=== PATIENT | male | born 1995 | race Hispanic/Latino ===

== ENCOUNTER 2018-06-02 19:26 | Emergency (ER) | payer OTHER ==
[2018-06-02 20:22] LABS: Basophils # (Auto) 0.1 K/mm3 (0.0-0.1); Basophils % (Auto) 1.4 % (0.0-1.8); Eosinophils # (Auto) 0.1 K/mm3 (0.0-0.4); Eosinophils % (Auto) 2.1 % (0.0-4.3); Hematocrit 30.8 % (35.5-45.6); Hemoglobin 10.4 gm/dl (11.8-15.2); Lymphocytes # (Auto) 1.5 K/mm3 (1.2-5.4); Lymphocytes % (Auto) 25.2 % (13.4-35.0); Mean Corpuscular HGB Conc 34 % (32-34); Mean Corpuscular Volume 89 fl (84-94); Monocytes # (Auto) 0.6 K/mm3 (0.0-0.8); Monocytes % (Auto) 10.1 % (0.0-7.3); Platelet Count 355 K/mm3 (140-440); Red Blood Count 3.45 M/mm3 (3.65-5.03); Red Cell Distribution Width 15.9 % (13.2-15.2)
--- NOTE | 2018-06-02 20:24 | Emergency Department Report ---
HPI - General Chief Complaint: Abdominal Pain Time Seen by Provider: 06/02/18 20:06 - HPI HPI: Room 20 The patient is a 23-year-old male with history of Marfan syndrome with a chief complaint of shortness of breath and abdominal pain. The patient states he is status post AAA repair approximately [address] Laguerre. The patient states early this morning he developed intermittent shortness of breath. Patient denies history of cough or fever. The patient states this evening at approximately 19:00 of sharp periumbilical and left-sided abdominal pain. The patient states he subsequently called EMS to be transported to the ED for further evaluation. The patient denies nausea or vomiting. The patient states that shortness of breath has resolved and his abdominal pain is intermittent. Patient currently denies abdominal pain. The patient states he has not contacted his surgeon yet about the symptoms. Location: [See above] Duration: [See above] Quality: Sharp Severity: Currently 0/10 Modifying factors: [see above] Context: [see above] Mode of transportation: [not driving] ED Past Medical Hx - Past Medical History Hx Hypertension: Yes Additional medical history: AAA, marfan syndrome - Surgical History Additional Surgical History: AAA repair - Family History Family history: no significant - Social History Smoking Status: Former Smoker (none 2-3 years) Substance Use Type: None - Medications Home Medications: Home Medications Medication Instructions Recorded Confirmed Last Taken Type HYDROcodone/APAP 5-325 [[place] 1 - 2 each PO Q6HR PRN #14 tablet 06/02/18 Unknown Rx 5/325] ED Review of Systems ROS: Stated complaint: ABDOMINAL PAIN/POST AAA Other details as noted in HPI Constitutional: denies: fever Eyes: denies: eye pain ENT: denies: throat pain Respiratory: shortness of breath. denies: cough Cardiovascular: denies: chest pain Endocrine: no symptoms reported Gastrointestinal: abdominal pain. denies: nausea, vomiting Genitourinary: denies: dysuria Musculoskeletal: denies: back pain Neurological: denies: headache Physical Exam - Physical Exam Vital Signs: Vital Signs 06/02/18 19:35 Temperature 98.1 F Pulse Rate 78 Respiratory 20 Rate Blood Pressure 161/108 O2 Sat by Pulse 98 Oximetry Physical Exam: GENERAL: The patient is well-developed well-nourished male lying on stretcher not appearing to be in acute distress. [] HEENT: Normocephalic. Atraumatic. Extraocular motions are intact. Patient has moist mucous membranes. NECK: Supple. Trachea midline CHEST/LUNGS: Clear to auscultation. There is no respiratory distress noted. HEART/CARDIOVASCULAR: Regular. There is no tachycardia. There is no gallop rub or murmur. ABDOMEN: Abdomen is soft, with tenderness to palpation in the left lower quadrant. Patient has normal bowel sounds. There is no abdominal distention. No abdominal bruits auscultated SKIN: There is no rash. There is no edema. There is no diaphoresis. NEURO: The patient is awake, alert, and oriented. The patient is cooperative. The patient has normal speech MUSCULOSKELETAL: There is no evidence of acute injury. ED Course Vital Signs 06/02/18 19:35 Temperature 98.1 F Pulse Rate 78 Respiratory 20 Rate Blood Pressure 161/108 O2 Sat by Pulse 98 Oximetry - Consultations Consultation #1: 06/02/18 22:16 Case discussed with the patient's vascular surgery PA Nitza Davis- sounds like normal post surgical findings. No need for immediate intervention. Have patient follow-up in office this week. ED Medical Decision Making - Lab Data Result diagrams: 06/02/18 20:06 06/02/18 20:06 Laboratory Tests 06/02/18 06/02/18 20:06 20:06 WBC 5.9 RBC 3.45 L Hgb 10.4 L Hct 30.8 L MCV 89 MCH 30 MCHC 34 RDW 15.9 H Plt Count 355 Lymph % (Auto) 25.2 [place] % (Auto) 10.1 H Eos % (Auto) 2.1 Baso % (Auto) 1.4 Lymph # 1.5 [place] # 0.6 Eos # 0.1 Baso # 0.1 Seg Neutrophils % 61.2 Seg Neutrophils # 3.6 Sodium 139 Potassium 4.0 Chloride 101.8 Carbon Dioxide 26 Anion Gap 15 BUN 9 Creatinine 0.5 L Estimated GFR > 60 BUN/Creatinine Ratio 18 Glucose 103 H Calcium 9.0 Total Bilirubin 0.40 AST 21 ALT 25 Alkaline Phosphatase 99 Total Protein 6.6 Albumin 3.5 L Albumin/Globulin Ratio 1.1 - Differential Diagnosis PE, atelectasis, pneumonia, AAA leak Critical care attestation.: If time is entered above; I have spent that time in minutes in the direct care of this critically ill patient, excluding procedure time. ED Disposition Clinical Impression: Postoperative abdominal pain Disposition: DC-01 TO HOME OR SELFCARE Is pt being admited?: No Does the pt Need Aspirin: No Condition: Stable Instructions: Abdominal Pain (ED) Additional Instructions: Return to the emergency department immediately should you develop worsening symptoms, fever, inability to tolerate food or liquid or any other concerns. Prescriptions: HYDROcodone/APAP 5-325 [[place] 5/325] 1 - 2 each PO Q6HR PRN #14 tablet PRN Reason: Pain Referrals: Dr. Laguerre, Vascular surgery [Other] - 06/05/18 Time of Disposition: 22:19
[2018-06-02 20:49] LABS: Alanine Aminotransferase 25 units/L (7-56); Albumin 3.5 g/dL (3.9-5); BUN/Creatinine Ratio 18; Blood Urea Nitrogen 9 mg/dL (9-20); Hemolysis Index 23
--- NOTE | 2018-06-02 21:54 | Cat Scan Report ---
PROCEDURE: CT ANGIO CHEST TECHNIQUE: Computerized tomographic angiography of the chest was performed after the IV injection of iodinated nonionic contrast including image processing. The image data was postprocessed using 2-di mensional multiplanar reformatted (MPR) and 3-dimensional (MIP and/or volume rendered) techniques. Au tomated exposure control, adjustment of mA and/or kV according to patient size, or iterative reconstr uction dose optimization techniques were utilized. CT DOSE LENGTH PRODUCT: 1002.4 mGycm HISTORY: shortness of breath, recent AAA repair COMPARISONS: None . FINDINGS: Heart and pericardium: Normal. 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 Remainder of the thoracic aorta is normal in caliber. There is no dissection.. Pulmonary vasculature: Normal. Lymph nodes: No enlarged thoracic lymph nodes. Lungs: The lungs are well expanded. There are no infiltrates.. Pleural space: No effusion, thickening, or pneumothorax. Musculoskeletal structures: There is scoliosis of the lower thoracic spine with convexity to the rig ht.. Upper abdominal structures: No significant abnormality. IMPRESSION: The heart size is normal. There is no pericardial effusion. . 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 Remainder of th e thoracic aorta is normal in caliber. There is no dissection.. The lungs are well expanded. There are no infiltrates.. There are no pleural effusions or pneumothora pasha. There is scoliosis of the lower thoracic spine with convexity to the right.. This document is electronically signed by Blayne Strauss MD., June 02 2018 09:52:15 PM ET
--- NOTE | 2018-06-02 21:58 | Cat Scan Report ---
PROCEDURE: CT ANGIO ABDOMEN PELVIS TECHNIQUE: Computerized axial tomographic angiography of the abdomen was performed after the IV inj ection of iodinated nonionic contrast. The image data was postprocessed using 2-dimensional multiplan ar reformatted (MPR) and 3-dimensional (MIP and/or volume rendered) techniques. CT DOSE LENGTH PRODUCT: mGycm HISTORY: periumbilical left abd pain, recent AAA repair COMPARISONS: None . FINDINGS: There has been abdominal aortic repair surgery. There is an aortic graft which is patent. The false l umen of the abdominal aorta measures up to 5 cm in diameter and is thrombosed. There is no evidence o f endograft leakage. The mesenteric branches are patent. The iliac branches are patent and normal in caliber. There is a left para-aortic loculated fluid collection measuring 4.6 x 5.5 x 4 cm. This could be post surgical seroma. Abscess considered unlikely. There is normal perfusion of the kidneys and bowel. There is no ischemic bowel injury. There is no hemoperitoneum or free air. The liver, gallbladder, pancreas and spleen are unremarkable. Bony structures are intact. There is slight scoliosis of the lumbar spine with convexity to the left. IMPRESSION: There has been abdominal aortic repair surgery. There is an aortic graft which is patent. The false l umen of the abdominal aorta measures up to 5 cm in diameter and is thrombosed. There is no evidence o f endograft leakage. The mesenteric branches are patent. The iliac branches are patent and normal in caliber. There is a left para-aortic loculated fluid collection measuring 4.6 x 5.5 x 4 cm. This could be post surgical seroma. This document is electronically signed by Blayne Strauss MD., June 02 2018 09:56:40 PM ET
[2018-06-02 22:03] VITALS: BP 129/84
== END 2018-06-02 22:50 | disposition home or self-care (01) ==
LOC: ED 19:26
DX: G89.18 Other acute postprocedural pain (principal); R10.9 Unspecified abdominal pain; R06.02 Shortness of breath; I10 Essential (primary) hypertension; Z86.79 Personal history of other diseases of the circulatory system; Z87.891 Personal history of nicotine dependence; Z91.018 Allergy to other foods
CPT/HCPCS: 36415; 71275; 74174; 80053; 85025; Q9967

== ENCOUNTER 2018-06-05 12:33 | Emergency (ER) | payer SELFPAY ==
[2018-06-05 12:48] VITALS: BP 148/103
--- NOTE | 2018-06-05 12:48 | Emergency Department Report ---
Blank Doc - Documentation Documentation: This is a 23-year-old male that presents with staple removal in the abdominal area. Patient had AAA surgery. Was done in [facility]. This initial assessment/diagnostic orders/clinical plan/treatment(s) is/are subject to change based on patient's health status, clinical progression and re- assessment by fellow clinical providers in the ED. Further treatment and workup at subsequent clinical providers discretion. Patient/guardians urged not to elope from the ED as their condition may be serious if not clinically assessed and managed. Initial orders include: 1- Patient sent to [facility] for further evaluation and treatment
--- NOTE | 2018-06-05 13:45 | Emergency Department Report ---
- General Chief Complaint: Laceration/Recheck/Suture Stated Complaint: STAPLE REMOVAL Time Seen by Provider: 06/05/18 12:46 Source: patient Mode of arrival: Ambulatory Limitations: No Limitations - History of Present Illness Initial Comments: Mr. Purvis is a 23 yo male with hx of Marfan's syndrome. He underwent two surgeries at the end of April for repair of aortic abdominal aneurysm/dissection with leak.He was supposed to have tracy removed from abdominal wound 1 week ago. He does not have any transportation to [place], [place]. - Related Data Previous Rx's Medication Instructions Recorded Last Taken Type HYDROcodone/APAP 5-325 [[place] 1 - 2 each PO Q6HR PRN #14 tablet 06/02/18 Unknown Rx 5/325] Allergies Allergy/AdvReac Type Severity Reaction Status Date / Time almond Allergy Unknown Verified 06/02/18 19:53 ED Review of Systems ROS: Stated complaint: STAPLE REMOVAL Other details as noted in HPI ED Past Medical Hx - Past Medical History Hx Hypertension: Yes Additional medical history: AAA, marfan syndrome - Surgical History Past Surgical History?: Yes Additional Surgical History: AAA repair - Social History Smoking Status: Current Every Day Smoker Substance Use Type: None - Medications Home Medications: Home Medications Medication Instructions Recorded Confirmed Last Taken Type HYDROcodone/APAP 5-325 [[place] 1 - 2 each PO Q6HR PRN #14 tablet 06/02/18 Unknown Rx 5/325] ED Physical Exam - General Limitations: No Limitations ED Course Vital Signs 06/05/18 12:46 Temperature 98.1 F Pulse Rate 79 Respiratory 16 Rate Blood Pressure 148/103 O2 Sat by Pulse 98 Oximetry ED Medical Decision Making - Medical Decision Making Mr. Purvis needs f/u with his personal surgeon in [place] who performed two vascular procedures on May 10. We will arrange case management consult for possible transportation. I have provided referral to our vascular surgeon inventory control/shipping receiving. Critical care attestation.: If time is entered above; I have spent that time in minutes in the direct care of this critically ill patient, excluding procedure time. ED Disposition Clinical Impression: Stapled skin wound Disposition: DC-01 TO HOME OR SELFCARE Is pt being admited?: No Does the pt Need Aspirin: No Condition: Stable Additional Instructions: Please follow up as discussed. Referrals: YURY EPPERSON MD [Staff Physician] - as needed
== END 2018-06-05 14:58 | disposition home or self-care (01) ==
LOC: ED 12:33
DX: S31.119D Laceration without foreign body of abdominal wall, unspecified quadrant without penetration into peritoneal cavity, subsequent encounter (principal); Q87.40 Marfan syndrome, unspecified; I10 Essential (primary) hypertension; F17.200 Nicotine dependence, unspecified, uncomplicated; Z91.010 Allergy to peanuts; W26.8XXA Contact with other sharp object(s), not elsewhere classified, initial encounter; Y93.89 Activity, other specified; Y92.89 Other specified places as the place of occurrence of the external cause; Y99.9 Unspecified external cause status
CPT/HCPCS: 99282

== ENCOUNTER 2018-06-06 22:06 | Emergency (ER) | payer OTHER ==
[2018-06-06] MEDS ORDERED: ZOFRAN IV ONE (22:18)
[2018-06-06] MEDS ORDERED: MORPHINE IV ONE (22:18)
--- NOTE | 2018-06-06 22:22 | Emergency Department Report ---
HPI - General Time Seen by Provider: 06/06/18 22:13 - HPI HPI: 23-year-old male, who has a history of Marfan syndrome with a AAA that was repaired in [place] 3 weeks ago, who presents to the emergency department with a complaint of some epigastric or upper abdominal pain/cramping, nausea and vomiting. This started shortly after the patient ate some uncooked cookie dough mixed with an egg and sugar. The patient was here about 4 days ago with some lower abdominal pain and had a CT angiography that showed a postsurgical seroma but otherwise no endograft leak and the patient's vascular doctor was contacted and cleared for discharge. The patient was also here yesterday for evaluation of the tracy, which are supposed to be removed, but the patient does not have transportation to get back to [place]. He did not take anything for her symptoms prior to arrival today. ED Past Medical Hx - Past Medical History Hx Hypertension: Yes Additional medical history: AAA, marfan syndrome - Surgical History Additional Surgical History: AAA repair - Social History Smoking Status: Current Every Day Smoker Substance Use Type: None - Medications Home Medications: Home Medications Medication Instructions Recorded Confirmed Last Taken Type HYDROcodone/APAP 5-325 [[place] 1 - 2 each PO Q6HR PRN #14 tablet 06/02/18 Unk nown Rx 5/325] Ondansetron [Zofran Odt] 4 mg PO Q8HR PRN #12 tab.rapdis 06/07/18 Unknown Rx ED Review of Systems ROS: Stated complaint: ABDOMINAL PAIN/VOMITING Other details as noted in HPI Comment: All other systems reviewed and negative Constitutional: denies: chills, fever Eyes: denies: eye pain, vision change ENT: denies: ear pain, throat pain Respiratory: denies: cough, shortness of breath Cardiovascular: denies: chest pain, palpitations Gastrointestinal: abdominal pain, nausea, vomiting Genitourinary: denies: dysuria, discharge Musculoskeletal: denies: back pain, arthralgia Skin: denies: rash, lesions Neurological: denies: headache, weakness Physical Exam - Physical Exam Physical Exam: GENERAL: The patient is well-developed well-nourished. HEENT: Normocephalic. Atraumatic. Patient has moist mucous membranes. EYES: Extraocular motions are intact. Pupils are equal and reactive to light bilaterally. NECK: Supple. Trachea is midline. CHEST/LUNGS: Clear to auscultation. There is no respiratory distress noted. HEART/CARDIOVASCULAR: Regular. There is no tachycardia. There is no obvious murmur. ABDOMEN: Abdomen is soft. There is some upper abdominal tenderness to palpation. No guarding. Patient has normal bowel sounds. There is no abdominal distention. SKIN: The patient has a long vertical abdominal incision with tracy in place. No surrounding erythema, warmth, fluctuance or purulent discharge seen. NEURO: The patient is awake, alert, and oriented. The patient is cooperative. The patient has no focal neurologic deficits. The patient has normal speech. MUSCULOSKELETAL: There is no tenderness or deformity. There is no evidence of acute injury. ED Medical Decision Making - Lab Data Result diagrams: 06/06/18 22:38 06/06/18 22:38 - Radiology Data Radiology results: report reviewed, image reviewed interpreted by me: Abdominal x-ray shows nonspecific nonobstructive bowel gas. PROCEDURE: CT ANGIO ABDOMEN PELVIS TECHNIQUE: A CT angiogram was obtained of the abdomen and pelvis following the intravenous injection of IV contrast. MIP sagittal and coronal reconstructions reviewed. Comparison is made to study of 06/02/2018. HISTORY: ABD Pain, Hx of AAA repair three weeks ago COMPARISONS: 06/02/2018 FINDINGS: There is been previous abdominal aortic aneurysm repair. The aortic graft is widely patent. The [place] abdominal aortic lumen measures up to 4.7 cm in diameter. There is no evidence of an endoleak. The celiac and superior mesenteric arteries opacify normally. Both renal arteries appear normal also. There is a stable left paraortic fluid collection measuring 5.5 x 4.7 x 5 cm. This most likely a postoperative seroma. Abscess would be less likely consideration. The lung bases are clear. The liver, spleen, gallbladder, biliary tree and pancreas appear normal. The kidneys enhance normally. The adrenal glands not well seen for evaluation. There is mild ascites. There are multiple mildly distended small bowel loops in the pelvis. A mild enteritis cannot be excluded. In the pelvis the bladder appears normal. The prostate gland is mildly enlarged. The skeletal structures reveal a dextro scoliosis of the thoracic lumbar spine. IMPRESSION: Status post aortic aneurysm repair. No evidence of graft thrombosis or endoleak. Stable left paraortic fluid collection with measurements unchanged from the previous study. This most likely represents a postoperative seroma. An abscess would be less likely consideration. Small punctate foci of air within the thrombosed [place] aneurysm unchanged from the prior study. This is most likely related to residual postsurgical changes. Infection would be a less likely c onsideration. Mild dilatation of small bowel loops in the pelvis. A mild enteritis cannot be excluded. Mild ascites. This document is electronically signed by Jaren Christopher MD., June 07 2018 12:29:39 AM ET Transcribed By: RB Dictated By: JAREN CHRISTOPHER MD Electronically Authenticated By: JAREN CHRISTOPHER MD Signed Date/Time: 06/07/18 0031 - Medical Decision Making Patient presents to the emergency department with a complaint of abdominal pain, nausea and vomiting after he ate some concoction of raw cookie dough, a raw egg and some sugar while he was baking cookies. There has been no further vomiting since being in the emergency department. Vital signs stable throughout his ED course. Labs have been unremarkable. Abdominal x-ray shows nonspecific nonobstructive bowel gas. Since the patient just recently had a AAA repair and now has this acute abdominal pain, a CT angiography of the abdomen and pelvis was done. However it did not show any evidence of graft thrombosis or an endoleak. There is a area that appears consistent with a postoperative seroma that is unchanged. The patient received a dose of pain medication and nausea medication. Upon reevaluation is feeling improved. He was able to keep down some water passing oral challenge. The patient will be discharged home to follow up with either his own vascular surgeon or one of our vascular surgeons for postoperative follow-up and removal of his tracy. He will return to the ER with any worsening of his symptoms or any acute distress. - Differential Diagnosis postop pain, gastritis, food poisoning, endovascular leak Critical Care Time: No Critical care attestation.: If time is entered above; I have spent that time in minutes in the direct care of this critically ill patient, excluding procedure time. ED Disposition Clinical Impression: History of AAA (abdominal aortic aneurysm) repair Nausea & vomiting Qualifiers: Vomiting type: unspecified Vomiting Intractability: non-intractable Qualified Code(s): R11.2 - Nausea with vomiting, unspecified Abdominal pain Qualifiers: Abdominal location: generalized Qualified Code(s): R10.84 - Generalized abdominal pain Disposition: - TO HOME OR SELFCARE Is pt being admited?: No Condition: Stable Instructions: Acute Nausea and Vomiting (ED), Abdominal Pain (ED) Additional Instructions: Please follow up with your vascular surgeons, or with the vascular surgeon referral that you were previously given who workes in this area, Dr Epperson Return to the emergency Department with any worsening of your symptoms or any acute distress. Prescriptions: Ondansetron [Zofran Odt] 4 mg PO Q8HR PRN #12 tab.rapdis PRN Reason: Nausea Referrals: YURY EPPERSON MD [Staff Physician] - 3-5 Days Time of Disposition: 03:03
[2018-06-06 23:02] LABS: Basophils # (Auto) 0.1 K/mm3 (0.0-0.1); Basophils % (Auto) 1.5 % (0.0-1.8); Eosinophils # (Auto) 0.2 K/mm3 (0.0-0.4); Eosinophils % (Auto) 2.8 % (0.0-4.3); Hematocrit 36.8 % (35.5-45.6); Hemoglobin 12.5 gm/dl (11.8-15.2); Lymphocytes # (Auto) 1.6 K/mm3 (1.2-5.4); Lymphocytes % (Auto) 25.9 % (13.4-35.0); Mean Corpuscular HGB Conc 34 % (32-34); Mean Corpuscular Volume 89 fl (84-94); Monocytes # (Auto) 0.6 K/mm3 (0.0-0.8); Monocytes % (Auto) 9.5 % (0.0-7.3); Platelet Count 276 K/mm3 (140-440); Red Blood Count 4.13 M/mm3 (3.65-5.03); Red Cell Distribution Width 15.7 % (13.2-15.2)
--- NOTE | 2018-06-06 23:09 | XRay Report ---
PROCEDURE: XR ABDOMEN 2V TECHNIQUE: Abdominal series, including supine and upright AP views. HISTORY: Abdominal Pain COMPARISONS: None . FINDINGS: Bowel gas pattern: Nonobstructive . Masses or calcifications: There has been a cholecystectomy. Multiple skin tracy identified in the midline of the abdomen from surgery . Bony structures: There is a significant right convex thoracic scoliosis . Pneumoperitoneum: None . Other: No significant findings . IMPRESSION: Bowel gas pattern is nonobstructive. Multiple skin tracy identified in the midline of the abdomen are from recent surgery. There has been previous cholecystectomy. This document is electronically signed by Camille Schumacher DO., June 06 2018 11:07:23 PM ET
[2018-06-06 23:12] LABS: INR 0.97 (0.87-1.13)
[2018-06-06 23:18] LABS: Alanine Aminotransferase 19 units/L (7-56); BUN/Creatinine Ratio 13; Blood Urea Nitrogen 8 mg/dL (9-20); Calcium 9.5 mg/dL (8.4-10.2); Hemolysis Index 6
[2018-06-06 23:43] LABS: Bilirubin,Direct < 0.2 mg/dL (0-0.2)
--- NOTE | 2018-06-07 00:31 | Cat Scan Report ---
PROCEDURE: CT ANGIO ABDOMEN PELVIS TECHNIQUE: A CT angiogram was obtained of the abdomen and pelvis following the intravenous injection of IV contrast. MIP sagittal and coronal reconstructions reviewed. Comparison is made to study of . HISTORY: ABD Pain, Hx of AAA repair three weeks ago COMPARISONS: 06/02/2018 FINDINGS: There is been previous abdominal aortic aneurysm repair. The aortic graft is widely patent. The nativ e abdominal aortic lumen measures up to 4.7 cm in diameter. There is no evidence of an endoleak. The celiac and superior mesenteric arteries opacify normally. Both renal arteries appear normal also. The re is a stable left paraortic fluid collection measuring 5.5 x 4.7 x 5 cm. This most likely a postope rative seroma. Abscess would be less likely consideration. The lung bases are clear. The liver, spleen, gallbladder, biliary tree and pancreas appear normal. Th e kidneys enhance normally. The adrenal glands not well seen for evaluation. There is mild ascites. There are multiple mildly distended small bowel loops in the pelvis. A mild en teritis cannot be excluded. In the pelvis the bladder appears normal. The prostate gland is mildly en larged. The skeletal structures reveal a dextro scoliosis of the thoracic lumbar spine. IMPRESSION: Status post aortic aneurysm repair. No evidence of graft thrombosis or endoleak. Stable left paraortic fluid collection with measurements unchanged from the previous study. This most likely represents a postoperative seroma. An abscess would be less likely consideration. Small punctate foci of air within the thrombosed [place] aneurysm unchanged from the prior study. This is most likely related to residual postsurgical changes. Infection would be a less likely considerat ion. Mild dilatation of small bowel loops in the pelvis. A mild enteritis cannot be excluded. Mild ascites. This document is electronically signed by Jaren Christopher MD., June 07 2018 12:29:39 AM ET
[2018-06-07 06:14] VITALS: BP 126/89
== END 2018-06-07 04:06 | disposition home or self-care (01) ==
LOC: ED 22:06
DX: R10.84 Generalized abdominal pain (principal); R11.2 Nausea with vomiting, unspecified; I10 Essential (primary) hypertension; F17.200 Nicotine dependence, unspecified, uncomplicated
CPT/HCPCS: 36415; 74019; 74174; 80048; 80076; 83690; 85025; 85610; 96374; 96375; 99285; J2270; J2405; Q9967